=== PATIENT | male | born 1975 | race Caucasian/White ===

== ENCOUNTER 2023-05-19 12:00 | Day surgery (SDC) | payer OTHER ==
[2023-05-19] MEDS ORDERED: TRAM1TAB98 PO (17:57)
== END 2023-05-19 21:55 | disposition home or self-care (01) ==
LOC: CIR.AMB 12:00
PROVIDERS: ATTEND Surgery
DX: C20 Malignant neoplasm of rectum (principal); K92.1 Melena; Z20.822 Contact with and (suspected) exposure to COVID-19; R19.4 Change in bowel habit; I10 Essential (primary) hypertension

== ENCOUNTER 2023-08-02 19:43 | Emergency (ER) | payer OTHER ==
[~2023-08-02] VITALS: Ht 180.3 cm; Wt 64.4 kg
[~2023-08-02 19:43] MED LIST: TRAM1TAB98 PO
[2023-08-02 22:00] LABS: HEMATOCRIT 39.6 % (39.0-48.0); HEMOGLOBIN 13.5 g/dL (13-16.00); MEAN CELL VOLUME 89.3 fL (80.0-100.00); MEAN CORPUSCULAR HEMOGLOBIN 30.4 pg (27.00-32.0); MEAN CORPUSCULAR HGB CONC 34.1 g/dl (32.0-36.0); PLATELET COUNT 134 K/uL (150-450); RED BLOOD COUNT 4.44 M/uL (4.00-6.00); RED CELL DISTRIBUTION WIDTH 17.1 % (11.5-14.5)
[2023-08-02 22:17] LABS: INR 1.02; PARTIAL THROMBOPLASTIN TIME 25.4 SECONDS (22.0-34.0); PROTHROMBIN TIME 10.7 SECONDS (9.0-11.5)
[2023-08-02 22:21] LABS: ALBUMIN 3.4 gm/dL (3.4-5.0); BILIRUBIN TOTAL 0.39 mg/dL (0.3-1.2); CALCIUM 8.9 mg/dL (8.5-10.1); CREATININE SERUM 1.1 mg/dL (0.70-1.30); GFR 72.06; GLOBULINA 3.4 G/DL (2.4-3.5); POTASSIUM 4.09 mEq/L (3.5-5.1); TOTAL PROTEIN 6.8 gm/dL (6.4-8.2)
[2023-08-03 01:16] LABS: PH,URINE 7.5 (5.0-8.0); URINE APPEARANCE Clear; URINE BILIRRUBIN Negative (NEGATIVE); URINE BLOOD Negative; URINE COLOR Yellow; URINE GLUCOSE Negative (NEGATIVE); URINE LEUKOCYTE Negative; URINE NITRATE Negative; URINE PROTEIN Negative (NEGATIVE)
[2023-08-03 01:19] LABS: URINE BACTERIA 6.2 uL (0.0-1933); URINE RBC 5.6 uL (0.0-20.8); URINE WBC 3.7 uL (0.0-23.2)
[2023-08-03 01:42] LABS: URINE CRYSTALS MODERATE /HPF; URINE EPITHELIAL CELLS 0.3 uL (0.0-38.8)
== END 2023-08-03 02:52 | disposition home or self-care (01) ==
LOC: ER 19:43
PROVIDERS: General Practice
DX: C18.9 Malignant neoplasm of colon, unspecified (principal); Z88.0 Allergy status to penicillin; Z88.8 Allergy status to other drugs, medicaments and biological substances
CPT/HCPCS: 36415; 74177; 96365; 96366; 99284; J2270; J3490; Q9965